=== PATIENT | female | born 1940 | race Two or more races ===

== ENCOUNTER 2017-04-24 11:45 | Inpatient (IN) | payer MEDICARE, MEDICAID ==
[2017-04-24] MEDS: PANTOPRAZOLE IV PUSH 40 MG VIAL. IVP (15:33)
[2017-04-24] MEDS: IV NORMAL SALINE 1000ML BAG 1,000 ML IV (15:34)
[2017-04-24 15:41] LABS: ADD MAN DIFF? NO
[2017-04-24 15:47] LABS: BASO % 0 % (0-3); EOS # 0.1 x10^3/uL (0.0-0.7); EOS % 2 % (0-3); HEMATOCRIT 34.6 % (36.0-47.0); HEMOGLOBIN 11.5 g/dL (12.0-15.5); LYMPH # 1.6 x10^3/uL (1.0-4.8); LYMPH % 35 % (24-48); MEAN CORPUSCULAR HEMOGLOBIN 31 pg (25-35); MEAN CORPUSCULAR HGB CONC 33 g/dL (31-37); MEAN CORPUSCULAR VOLUME 93 fL (79-100); MONO # 0.6 x10^3/uL (0.0-1.1); MONO % 14 % (0-9); NEUT # 2.2 x10^3uL (1.8-7.7); NEUT % 49 % (31-73); PLATELET COUNT 180 x10^3/uL (140-400); RED BLOOD COUNT 3.73 x10^6/uL (3.50-5.40); RED CELL DISTRIBUTION WIDTH 14.2 % (11.5-14.5); WHITE BLOOD COUNT 4.5 x10^3/uL (4.0-11.0)
[2017-04-24 16:16] LABS: TROPONINI 0.036 ng/mL (0.000-0.055)
[2017-04-24 16:18] LABS: NT-PRO BNP 207 pg/mL (0-449)
[2017-04-24 16:40] LABS: THYROID STIM HORMONE (TSH) 1.483 uIU/mL (0.358-3.74)
[2017-04-24 16:52] LABS: MAGNESIUM 2.3 mg/dL (1.8-2.4)
[2017-04-24 16:52] LABS: CHOLESTEROL 137 mg/dL (0-200); CHOLESTEROL/HDL RATIO 2.2; HDLC 61 mg/dL (40-60); LDLC 66 mg/dL (0-100); NON-HDL CHOLESTEROL 76 mg/dL (0-129); TRIGLYCERIDES 50 mg/dL (0-150); VLDLC 10 mg/dL (0-40)
[2017-04-24 17:21] LABS: ALBUMIN/GLOBULIN RATIO 0.8 (1.0-1.7); ALK PHOS 69 U/L (46-116); ALT (SGPT) 20 U/L (14-59); ANION GAP 9 (6-14); AST (SGOT) 20 U/L (15-37); BLOOD UREA NITROGEN 16 mg/dL (7-20); BUN/CREATININE RATIO 23 (6-20); CALCIUM 8.8 mg/dL (8.5-10.1); CARBON DIOXIDE 25 mmol/L (21-32); CHLORIDE 110 mmol/L (98-107); CREATININE 0.7 mg/dL (0.6-1.0); GFR 80.9; GLUCOSE 111 mg/dL (70-99); POTASSIUM 3.4 mmol/L (3.5-5.1); SODIUM 144 mmol/L (136-145); TOTAL BILIRUBIN 0.3 mg/dL (0.2-1.0); TOTAL PROTEIN 6.7 g/dL (6.4-8.2)
[2017-04-24] MEDS: ASPIRIN CHEWABLE 81 MG TABLET. PO (17:43)
[2017-04-24] MEDS: IPRATRPIUM/ALBUTEROL 0.5/2.5MG 3 ML NEBU. NEB (18:15)
[2017-04-24] MEDS: MAG HYDROX/ALUMINUM HYD/SIMETH 30 ML ORAL.SUSP PO (20:59)
[2017-04-24 23:02] LABS: TROPONINI 0.027 ng/mL (0.000-0.055)
[2017-04-24] MEDS: POTASSIUM CHLORIDE 20 MEQ TABLET.ER. PO (23:24)
[2017-04-25 04:10] LABS: ANION GAP 11 (6-14); BLOOD UREA NITROGEN 17 mg/dL (7-20); CALCIUM 9.1 mg/dL (8.5-10.1); CARBON DIOXIDE 22 mmol/L (21-32); CHLORIDE 111 mmol/L (98-107); CREATININE 0.6 mg/dL (0.6-1.0); GFR 96.7; GLUCOSE 87 mg/dL (70-99); POTASSIUM 3.7 mmol/L (3.5-5.1); SODIUM 144 mmol/L (136-145)
[2017-04-25 04:20] LABS: TROPONINI 0.027 ng/mL (0.000-0.055)
[2017-04-25] MEDS: IV NORMAL SALINE 1000ML BAG 1,000 ML IV ×2 (04:27→20:05)
[2017-04-25] MEDS: IPRATRPIUM/ALBUTEROL 0.5/2.5MG 3 ML NEBU. NEB ×4 (07:59→20:00)
[2017-04-25] MEDS: REGADENOSON 0.4 MG/5 ML DISP.SYRIN. IV (12:02)
[2017-04-25] MEDS: ASPIRIN ENTERIC COATED 81 MG TABLET.DR. PO (12:35)
[2017-04-25] MEDS: ACETAMINOPHEN 500 MG TABLET PO (12:35)
[2017-04-25] MEDS: PANTOPRAZOLE IV PUSH 40 MG VIAL. IVP (12:58)
[2017-04-25] MEDS: hydrALAZINE 20 MG/ML VIAL. IVP (13:11)
[2017-04-25] MEDS: KETOROLAC 15 MG/ML VIAL. IV (13:31)
[2017-04-25] MEDS: ONDANSETRON PF 4 MG/2 ML VIAL. IV (13:31)
[2017-04-26] MEDS: IPRATRPIUM/ALBUTEROL 0.5/2.5MG 3 ML NEBU. NEB ×3 (07:08→15:52)
[2017-04-26] MEDS: PANTOPRAZOLE IV PUSH 40 MG VIAL. IVP (07:51)
[2017-04-26] MEDS: IV NORMAL SALINE 1000ML BAG 1,000 ML IV (07:51)
[2017-04-26] MEDS: IV RINGERS,LACTATED 1000ML 1,000 ML IV (13:15)
[2017-04-26] MEDS ORDERED: PROPOFOL 20 ML IV (13:43)
[2017-04-26] MEDS ORDERED: LIDOCAINE 2% PF Vial for OR 5 ML VIAL. (13:43)
[2017-04-26] MEDS: ASPIRIN ENTERIC COATED 81 MG TABLET.DR. PO (15:44)
== END 2017-04-26 16:15 | disposition home or self-care (01) | DRG 392 ==
LOC: 6 SOUTH 11:45
PROVIDERS: Internal Medicine
PROC: 0DJ08ZZ Inspection of Upper Intestinal Tract, Via Natural or Artificial Opening Endoscopic (ICD-10-PCS; principal; 2017-04-26 14:00)
DX: K21.0 Gastro-esophageal reflux disease with esophagitis (principal); J44.9 Chronic obstructive pulmonary disease, unspecified; I86.4 Gastric varices; R07.89 Other chest pain; F17.210 Nicotine dependence, cigarettes, uncomplicated; I10 Essential (primary) hypertension
CPT/HCPCS: 36415; 71046; 76700; 78452; 80048; 80053; 80061; 83735; 83880; 84443; 84484; 85025; 93005; 93017; 93306; 93976; 94640; 94760; 96374; 96375; 96376; A9500; C9113; J0360; J1885; J2405; J2704; J2785; J7030; J7120; J7620